=== PATIENT | female | born 1990 | race Caucasian/White ===

== ENCOUNTER 2017-01-12 00:15 | Emergency (ER) | payer BC ==
[2017-01-12] MEDS ORDERED: SODIUM CHLORIDE 0.9% FLUSH 10 ML SOL IV PRN (00:31)
[2017-01-12] MEDS ORDERED: ASPIRIN 81 MG CHEWABLE CTB PO STA (00:31)
[2017-01-12] MEDS ORDERED: NITROGLYCERIN 0.4 MG TAB SL PRN (00:31)
[2017-01-12] MEDS ORDERED: ASPIRIN 81 MG CHEWABLE CTB ONE (00:33)
[2017-01-12 00:36] LABS: BASOPHILS % (AUTO) 1 % (0-3); EOSINOPHILS % (AUTO) 1 % (0-9); HEMATOCRIT 42 % (35-47); MEAN CORPUSCULAR HGB CONC 33.8 gm/dl (32.0-36.0); MEAN CORPUSCULAR VOLUME 92 fL (81-99); MONOCYTES % (AUTO) 6.5 % (0-12); NEUTROPHILS % (AUTO) 67.9 % (37-80)
[2017-01-12 00:49] LABS: CALCIUM 8.2 mg/dl (8.5-10.1); GLOM FILT RATE 73 mL/min (>60); POTASSIUM 3.7 mMol/L (3.5-5.1); SODIUM 139 mMol/L (136-145)
[2017-01-12 01:01] VITALS: TEMP 99
[2017-01-12 02:22] VITALS: BP 131/76; PULSE 84; RESP 22; O2SAT 98
== END 2017-01-12 01:38 | disposition home or self-care (01) ==
LOC: ED 00:15
DX: R07.89 Other chest pain (principal)
CPT/HCPCS: 71010; 80048; 84484; 85025; 93005; 99284; 99285